=== PATIENT | female | born 1970 ===

== ENCOUNTER 2024-05-26 05:21 | Day surgery (SDC) | payer OTHER ==
[2024-05-26] MEDS ORDERED: HEMOSTATIC MATRIX 1 KIT KIT TOP ONE (09:15)
[2024-05-26] MEDS ORDERED: BUPIVACAINE HCL 30 ML VIAL IJ ONE (09:15)
[2024-05-26] MEDS ORDERED: DIBUCAINE 30 GM TUBE RECTAL ONE (09:15)
[2024-05-26] MEDS ORDERED: POVIDONE-IODINE 118 ML BOTT TOP ONE (09:15)
[2024-05-26] MEDS ORDERED: PIPERACILLIN/TAZOBACTAM SODIUM 3.375 GM VIAL IV ONE ×2 (09:15)
[2024-05-26] MEDS ORDERED: CELECOXIB200 MG PO (10:51)
[2024-05-26] MEDS ORDERED: NEURONTIN300 MG PO (10:51)
[2024-05-26] MEDS ORDERED: INTESTINEX680 M1 PO (10:51)
== END 2024-05-26 12:55 | disposition home or self-care (01) ==
LOC: CIR.AMB 05:21
PROVIDERS: ATTEND Surgery
DX: D12.8 Benign neoplasm of rectum (principal); K92.2 Gastrointestinal hemorrhage, unspecified; G43.909 Migraine, unspecified, not intractable, without status migrainosus